=== PATIENT | female | born 1975 | race Caucasian/White ===

== ENCOUNTER 2020-06-30 05:58 | Day surgery (SDC) | payer BC ==
[~2020-06-30] VITALS: Ht 162.6 cm; Wt 97.0 kg
[2020-06-30] VITALS (11 sets, daily range): BP systolic 100–110; BP diastolic 47–67
[2020-06-30] MEDS ORDERED: normal saline 1000ml 1,000 ML IV PRN (06:20)
[2020-06-30] MEDS ORDERED: albumin 25% 100mL bottle x 1 IV PRN (06:20)
[2020-06-30] MEDS ORDERED: TRAZ-256 PO (06:54)
[2020-06-30] MEDS ORDERED: PROP10TA10 PO (06:55)
[2020-06-30] MEDS ORDERED: FURO40TA4 PO (06:56)
[2020-06-30] MEDS ORDERED: SPIR100T PO (06:56)
[2020-06-30] MEDS ORDERED: ESCI20TA45 PO (06:57)
[2020-06-30] MEDS ORDERED: LEVO75TA PO (07:05)
[2020-06-30] MEDS ORDERED: LORA-660 PO (07:06)
[2020-06-30] MEDS ORDERED: milk thistle (07:08)
[2020-06-30] MEDS ORDERED: probiotic (07:11)
[2020-06-30] MEDS ORDERED: vitamin B-12 (07:12)
[2020-06-30] MEDS ORDERED: iron (07:12)
[2020-06-30] MEDS ORDERED: LACT10SO PO (07:19)
== END 2020-06-30 10:30 | disposition home or self-care (01) ==
LOC: SSTAY O 05:58
PROVIDERS: ATTEND Radiology Diagnostic Radiology
DX: K70.31 Alcoholic cirrhosis of liver with ascites (principal); F32.9 Major depressive disorder, single episode, unspecified; E55.9 Vitamin D deficiency, unspecified; D69.6 Thrombocytopenia, unspecified; G47.00 Insomnia, unspecified; E03.9 Hypothyroidism, unspecified; F41.9 Anxiety disorder, unspecified; Z79.899 Other long term (current) drug therapy
CPT/HCPCS: 49083; P9047

== ENCOUNTER 2020-07-11 05:59 | Day surgery (SDC) | payer BC ==
[2020-07-11] VITALS (7 sets, daily range): BP systolic 90–94; BP diastolic 43–74
[~2020-07-11] VITALS: Ht 162.6 cm; Wt 93.2 kg
[~2020-07-11 05:59] MED LIST: ESCI20TA45 PO; FURO40TA4 PO; LACT10SO PO; LEVO75TA PO; LORA-660 PO; PROP10TA10 PO; SPIR100T PO; TRAZ-256 PO; iron; milk thistle; probiotic; vitamin B-12
[2020-07-11] MEDS ORDERED: normal saline 1000ml 1,000 ML IV PRN (06:20)
[2020-07-11] MEDS ORDERED: albumin 25% 100mL bottle x 1 IV PRN (06:20)
== END 2020-07-11 09:45 | disposition home or self-care (01) ==
LOC: SSTAY O 05:59
PROVIDERS: ATTEND Radiology Diagnostic Radiology
DX: K70.31 Alcoholic cirrhosis of liver with ascites (principal); F32.9 Major depressive disorder, single episode, unspecified; E55.9 Vitamin D deficiency, unspecified; D69.6 Thrombocytopenia, unspecified; F41.9 Anxiety disorder, unspecified; G47.00 Insomnia, unspecified; E03.9 Hypothyroidism, unspecified; Z79.899 Other long term (current) drug therapy
CPT/HCPCS: 49083; P9047